=== PATIENT | male | born 1955 | race Caucasian/White ===

== ENCOUNTER 2016-05-13 09:44 | Outpatient (RCR) | payer BC ==
[~2016-05-13 09:44] MED LIST: FAMO-119 PO; PRD20T PO
--- OUTSIDE RECORDS SUMMARY | 2016-05-13 09:47 | XMS REPORT | Continuity of Care Document ---
Author Author [facility] Organization [facility] Address Unknown Phone Unavailable Care Team Providers Care Noc Analyst Name Role Phone PCP Unavailable Source Comments Some departments are not documenting in the electronic medical record. If you do not see the information that you expected, contact Release of Information in the Health Information Management department at [phone] for further assistance in locating additional records.[facility] Active Allergies and Adverse Reactions Not on File Current Medications Not on file Active Problems Not on file Social History Tobacco Use Types Packs/Day Years Used Date Never Assessed Plan of Care Health Maintenance Due Date Last Done Comments Physical (Comprehensive) 02/27/1960 Exam Pertussis Vaccine 02/27/1964 Tetanus Vaccine 1970 Colorectal Cancer 2003 Screening Shingles Vaccine 2013 Influenza Vaccine 01/08/2016 Results from Last 3 Months Not on file
[2016-05-13 10:07] LABS: BASOPHILS % (AUTO) 1 % (0-10); EOSINOPHILS # (AUTO) 0.1 10^3/uL (0.0-0.3); EOSINOPHILS % (AUTO) 1 % (0-10); LYMPHOCYTES # (AUTO) 1.7 X 10^3 (1.0-4.0); LYMPHOCYTES % (AUTO) 28 % (12-44); MEAN CORPUSCULAR HEMOGLOBIN 31 PG (25-34); MEAN CORPUSCULAR HGB CONC 34 G/DL (32-36); MEAN CORPUSCULAR VOLUME 93 FL (80-99); MEAN PLATELET VOLUME 10.1 FL (7.4-10.4); MONOCYTES # (AUTO) 0.6 X 10^3 (0.0-1.0); MONOCYTES % (AUTO) 10 % (0-12); NEUTROPHILS # (AUTO) 3.7 X 10^3 (1.8-7.8); NEUTROPHILS % (AUTO) 61 % (42-75); PLATELET COUNT 197 10^3/uL (130-400); RED BLOOD COUNT 4.41 10^6/uL (4.35-5.85); RED CELL DISTRIBUTION WIDTH 12.7 % (10.0-14.5); WHITE BLOOD COUNT 6.1 10^3/uL (4.3-11.0)
[2016-05-13 10:37] LABS: ALANINE AMINOTRANSFERASE 65 U/L (0-55); ALBUMIN 4.4 G/DL (3.2-4.5); ANION GAP 9 MMOL/L (5-14); ASPARTATE AMINO TRANSFERASE 65 U/L (5-34); BILIRUBIN,TOTAL 0.7 MG/DL (0.1-1.0); BLOOD UREA NITROGEN 8 MG/DL (7-18); BUN/CREATININE RATIO 9; CALCIUM 9.1 MG/DL (8.5-10.1); CARBON DIOXIDE 26 MMOL/L (21-32); CHLORIDE 104 MMOL/L (98-107); CREATININE SERUM 0.88 MG/DL (0.60-1.30); GFR ESTIMATED > 60; GLUCOSE 107 MG/DL (70-105); SODIUM 139 MMOL/L (135-145); TOTAL PROTEIN 6.7 G/DL (6.4-8.2)
== END 2016-08-11 | disposition home or self-care (01) ==
LOC: ONC 09:44
PROVIDERS: ATTEND Internal Medicine Hematology & Oncology
DX: C50.222 Malignant neoplasm of upper-inner quadrant of left male breast (principal); Z17.0 Estrogen receptor positive status [ER+]; Z90.13 Acquired absence of bilateral breasts and nipples; Z79.810 Long term (current) use of selective estrogen receptor modulators (SERMs)
CPT/HCPCS: 36415; 80053; 85025; 99213

== ENCOUNTER 2016-08-12 10:41 | Outpatient (RCR) | payer BC ==
[2016-08-12 11:28] LABS: BASOPHILS # (AUTO) 0.1 10^3/uL (0.0-0.1); BASOPHILS % (AUTO) 1 % (0-10); EOSINOPHILS # (AUTO) 0.1 10^3/uL (0.0-0.3); EOSINOPHILS % (AUTO) 1 % (0-10); LYMPHOCYTES # (AUTO) 1.7 X 10^3 (1.0-4.0); LYMPHOCYTES % (AUTO) 30 % (12-44); MEAN CORPUSCULAR HEMOGLOBIN 32 PG (25-34); MEAN CORPUSCULAR HGB CONC 33 G/DL (32-36); MEAN CORPUSCULAR VOLUME 96 FL (80-99); MEAN PLATELET VOLUME 10.9 FL (7.4-10.4); MONOCYTES # (AUTO) 0.5 X 10^3 (0.0-1.0); MONOCYTES % (AUTO) 9 % (0-12); NEUTROPHILS # (AUTO) 3.3 X 10^3 (1.8-7.8); NEUTROPHILS % (AUTO) 59 % (42-75); PLATELET COUNT 219 10^3/uL (130-400); RED BLOOD COUNT 4.37 10^6/uL (4.35-5.85); RED CELL DISTRIBUTION WIDTH 12.8 % (10.0-14.5); WHITE BLOOD COUNT 5.5 10^3/uL (4.3-11.0)
[2016-08-12 11:59] LABS: ALANINE AMINOTRANSFERASE 80 U/L (0-55); ALBUMIN 4.3 G/DL (3.2-4.5); ANION GAP 6 MMOL/L (5-14); ASPARTATE AMINO TRANSFERASE 81 U/L (5-34); BILIRUBIN,TOTAL 0.6 MG/DL (0.1-1.0); BLOOD UREA NITROGEN 8 MG/DL (7-18); BUN/CREATININE RATIO 8; CARBON DIOXIDE 28 MMOL/L (21-32); CHLORIDE 104 MMOL/L (98-107); CREATININE SERUM 1.01 MG/DL (0.60-1.30); GFR ESTIMATED > 60; GLUCOSE 121 MG/DL (70-105); POTASSIUM 4.3 MMOL/L (3.6-5.0); SODIUM 138 MMOL/L (135-145); TOTAL PROTEIN 6.8 G/DL (6.4-8.2)
== END 2016-11-10 | disposition home or self-care (01) ==
LOC: ONC 10:41
PROVIDERS: ATTEND Internal Medicine Hematology & Oncology
DX: C50.222 Malignant neoplasm of upper-inner quadrant of left male breast (principal); Z17.0 Estrogen receptor positive status [ER+]; Z90.13 Acquired absence of bilateral breasts and nipples; Z79.810 Long term (current) use of selective estrogen receptor modulators (SERMs)
CPT/HCPCS: 36415; 80053; 85025; 99213

== ENCOUNTER 2016-11-11 09:36 | Outpatient (RCR) | payer BC ==
[2016-11-11 09:40] LABS: BASOPHILS # (AUTO) 0.1 10^3/uL (0.0-0.1); BASOPHILS % (AUTO) 1 % (0-10); EOSINOPHILS # (AUTO) 0.1 10^3/uL (0.0-0.3); EOSINOPHILS % (AUTO) 2 % (0-10); LYMPHOCYTES # (AUTO) 2.3 X 10^3 (1.0-4.0); LYMPHOCYTES % (AUTO) 28 % (12-44); MEAN CORPUSCULAR HEMOGLOBIN 32 PG (25-34); MEAN CORPUSCULAR HGB CONC 34 G/DL (32-36); MEAN CORPUSCULAR VOLUME 94 FL (80-99); MEAN PLATELET VOLUME 10.4 FL (7.4-10.4); MONOCYTES # (AUTO) 0.7 X 10^3 (0.0-1.0); MONOCYTES % (AUTO) 9 % (0-12); NEUTROPHILS # (AUTO) 4.8 X 10^3 (1.8-7.8); NEUTROPHILS % (AUTO) 60 % (42-75); PLATELET COUNT 213 10^3/uL (130-400); RED BLOOD COUNT 4.44 10^6/uL (4.35-5.85); RED CELL DISTRIBUTION WIDTH 12.7 % (10.0-14.5)
[2016-11-11 10:17] LABS: ALANINE AMINOTRANSFERASE 68 U/L (0-55); ALBUMIN 4.3 GM/DL (3.2-4.5); ANION GAP 9 MMOL/L (5-14); ASPARTATE AMINO TRANSFERASE 81 U/L (5-34); BLOOD UREA NITROGEN 10 MG/DL (7-18); BUN/CREATININE RATIO 10; CALCIUM 9.6 MG/DL (8.5-10.1); CARBON DIOXIDE 27 MMOL/L (21-32); CHLORIDE 102 MMOL/L (98-107); CREATININE SERUM 1.05 MG/DL (0.60-1.30); GFR ESTIMATED > 60; GLUCOSE 119 MG/DL (70-105); POTASSIUM 4.4 MMOL/L (3.6-5.0); SODIUM 138 MMOL/L (135-145); TOTAL PROTEIN 7.3 GM/DL (6.4-8.2)
== END 2017-02-05 | disposition home or self-care (01) ==
LOC: ONC 09:36
PROVIDERS: ATTEND Internal Medicine Hematology & Oncology
DX: C50.222 Malignant neoplasm of upper-inner quadrant of left male breast (principal); Z17.0 Estrogen receptor positive status [ER+]; Z90.13 Acquired absence of bilateral breasts and nipples; Z79.810 Long term (current) use of selective estrogen receptor modulators (SERMs); I89.0 Lymphedema, not elsewhere classified; R22.2 Localized swelling, mass and lump, trunk; Z12.5 Encounter for screening for malignant neoplasm of prostate
CPT/HCPCS: 36415; 80053; 84153; 85025; 99213

== ENCOUNTER 2017-02-21 08:40 | Outpatient (RCR) | payer BC ==
[2017-02-21 08:56] LABS: BASOPHILS % (AUTO) 1 % (0-10); EOSINOPHILS # (AUTO) 0.1 10^3/uL (0.0-0.3); EOSINOPHILS % (AUTO) 2 % (0-10); HEMATOCRIT 41 % (40-54); HEMOGLOBIN 13.6 G/DL (13.3-17.7); LYMPHOCYTES # (AUTO) 2.4 X 10^3 (1.0-4.0); LYMPHOCYTES % (AUTO) 41 % (12-44); MEAN CORPUSCULAR HEMOGLOBIN 32 PG (25-34); MEAN CORPUSCULAR HGB CONC 33 G/DL (32-36); MEAN CORPUSCULAR VOLUME 96 FL (80-99); MEAN PLATELET VOLUME 10.6 FL (7.4-10.4); MONOCYTES # (AUTO) 0.5 X 10^3 (0.0-1.0); MONOCYTES % (AUTO) 9 % (0-12); NEUTROPHILS # (AUTO) 2.7 X 10^3 (1.8-7.8); NEUTROPHILS % (AUTO) 47 % (42-75); PLATELET COUNT 204 10^3/uL (130-400); RED BLOOD COUNT 4.29 10^6/uL (4.35-5.85); RED CELL DISTRIBUTION WIDTH 12.7 % (10.0-14.5); WHITE BLOOD COUNT 5.7 10^3/uL (4.3-11.0)
[2017-02-21 09:15] LABS: ALANINE AMINOTRANSFERASE 57 U/L (0-55); ALBUMIN 4.3 GM/DL (3.2-4.5); ALKALINE PHOSPHATASE 105 U/L (40-136); BILIRUBIN,TOTAL 0.4 MG/DL (0.1-1.0); BUN/CREATININE RATIO 16; CALCIUM 8.9 MG/DL (8.5-10.1); CARBON DIOXIDE 23 MMOL/L (21-32); CHLORIDE 106 MMOL/L (98-107); CREATININE SERUM 0.85 MG/DL (0.60-1.30); GFR ESTIMATED > 60; GLUCOSE 97 MG/DL (70-105); POTASSIUM 4.3 MMOL/L (3.6-5.0); SODIUM 140 MMOL/L (135-145)
== END 2017-05-22 | disposition home or self-care (01) ==
LOC: ONC 08:40
PROVIDERS: ATTEND Internal Medicine Hematology & Oncology
DX: C50.222 Malignant neoplasm of upper-inner quadrant of left male breast (principal); Z17.0 Estrogen receptor positive status [ER+]; Z90.13 Acquired absence of bilateral breasts and nipples; Z79.810 Long term (current) use of selective estrogen receptor modulators (SERMs); I89.0 Lymphedema, not elsewhere classified; R22.2 Localized swelling, mass and lump, trunk; Z12.5 Encounter for screening for malignant neoplasm of prostate
CPT/HCPCS: 36415; 80053; 85025; 99213

== ENCOUNTER 2017-06-22 09:25 | Outpatient (RCR) | payer BC ==
[2017-06-22 09:45] LABS: BASOPHILS % (AUTO) 1 % (0-10); EOSINOPHILS # (AUTO) 0.1 10^3/uL (0.0-0.3); EOSINOPHILS % (AUTO) 2 % (0-10); HEMATOCRIT 41 % (40-54); HEMOGLOBIN 13.9 G/DL (13.3-17.7); LYMPHOCYTES # (AUTO) 2.2 X 10^3 (1.0-4.0); LYMPHOCYTES % (AUTO) 47 % (12-44); MEAN CORPUSCULAR HEMOGLOBIN 33 PG (25-34); MEAN CORPUSCULAR HGB CONC 34 G/DL (32-36); MEAN CORPUSCULAR VOLUME 95 FL (80-99); MEAN PLATELET VOLUME 10.5 FL (7.4-10.4); MONOCYTES # (AUTO) 0.4 X 10^3 (0.0-1.0); MONOCYTES % (AUTO) 8 % (0-12); NEUTROPHILS % (AUTO) 42 % (42-75); PLATELET COUNT 200 10^3/uL (130-400); RED BLOOD COUNT 4.26 10^6/uL (4.35-5.85); RED CELL DISTRIBUTION WIDTH 12.2 % (10.0-14.5); WHITE BLOOD COUNT 4.6 10^3/uL (4.3-11.0)
[2017-06-22 10:07] LABS: ALANINE AMINOTRANSFERASE 81 U/L (0-55); ALBUMIN 4.3 GM/DL (3.2-4.5); ALKALINE PHOSPHATASE 73 U/L (40-136); BILIRUBIN,TOTAL 0.5 MG/DL (0.1-1.0); BUN/CREATININE RATIO 8; CALCIUM 9.3 MG/DL (8.5-10.1); CARBON DIOXIDE 25 MMOL/L (21-32); CHLORIDE 104 MMOL/L (98-107); CREATININE SERUM 1.02 MG/DL (0.60-1.30); GFR ESTIMATED > 60; GLUCOSE 156 MG/DL (70-105); POTASSIUM 4.9 MMOL/L (3.6-5.0); SODIUM 138 MMOL/L (135-145); TOTAL PROTEIN 6.9 GM/DL (6.4-8.2)
== END 2017-09-20 | disposition home or self-care (01) ==
LOC: ONC 09:25
PROVIDERS: ATTEND Internal Medicine Hematology & Oncology
DX: C50.222 Malignant neoplasm of upper-inner quadrant of left male breast (principal); I89.0 Lymphedema, not elsewhere classified; Z17.0 Estrogen receptor positive status [ER+]; Z90.13 Acquired absence of bilateral breasts and nipples; Z79.810 Long term (current) use of selective estrogen receptor modulators (SERMs)
CPT/HCPCS: 36415; 80053; 85025; 99213

== ENCOUNTER → 2017-07-01 | Outpatient (CLI) | payer BC ==
--- NOTE | 2017-07-01 17:42 | Diagnostic Imaging Report ---
INDICATION: Breast carcinoma with left mastectomy three years ago. Patient has a lump in the chest wall. Study was performed for followup. COMPARISON: Correlation is made with prior study from 02/11/2016. EXAMINATION: Chest ultrasound. FINDINGS: There is a hypoechoic fairly circumscribed mass along the lateral portion of the patient's scar in the left chest, measuring 3.6 x 1.4 x 2.5 cm. This compares with 3.3 x 1.6 x 2.4 cm on prior. No internal vascularity is seen. IMPRESSION: Stable left chest wall mass when compared with examination dating back to 02/11/2016. Dictated by: Dictated on workstation # [id number]
== END ==
LOC: RAD 14:00
PROVIDERS: ATTEND Nurse Practitioner Adult Health
DX: R22.2 Localized swelling, mass and lump, trunk (principal); Z85.3 Personal history of malignant neoplasm of breast; Z90.12 Acquired absence of left breast and nipple
CPT/HCPCS: 76604

== ENCOUNTER 2017-10-26 08:52 | Outpatient (RCR) | payer BC ==
[2017-10-26 09:07] LABS: BASOPHILS % (AUTO) 0 % (0-10); EOSINOPHILS # (AUTO) 0.1 10^3/uL (0.0-0.3); EOSINOPHILS % (AUTO) 1 % (0-10); HEMATOCRIT 40 % (40-54); LYMPHOCYTES # (AUTO) 2.6 X 10^3 (1.0-4.0); LYMPHOCYTES % (AUTO) 46 % (12-44); MEAN CORPUSCULAR HEMOGLOBIN 33 PG (25-34); MEAN CORPUSCULAR HGB CONC 35 G/DL (32-36); MEAN CORPUSCULAR VOLUME 94 FL (80-99); MEAN PLATELET VOLUME 10.7 FL (7.4-10.4); MONOCYTES # (AUTO) 0.6 X 10^3 (0.0-1.0); MONOCYTES % (AUTO) 11 % (0-12); NEUTROPHILS # (AUTO) 2.4 X 10^3 (1.8-7.8); NEUTROPHILS % (AUTO) 42 % (42-75); PLATELET COUNT 227 10^3/uL (130-400); RED BLOOD COUNT 4.25 10^6/uL (4.35-5.85); RED CELL DISTRIBUTION WIDTH 12.3 % (10.0-14.5); WHITE BLOOD COUNT 5.6 10^3/uL (4.3-11.0)
[2017-10-26 09:53] LABS: ALANINE AMINOTRANSFERASE 66 U/L (0-55); ALBUMIN 4.2 GM/DL (3.2-4.5); ALKALINE PHOSPHATASE 88 U/L (40-136); BILIRUBIN,TOTAL 0.5 MG/DL (0.1-1.0); BUN/CREATININE RATIO 6; CARBON DIOXIDE 23 MMOL/L (21-32); CHLORIDE 105 MMOL/L (98-107); CREATININE SERUM 1.01 MG/DL (0.60-1.30); GFR ESTIMATED > 60; GLUCOSE 105 MG/DL (70-105); POTASSIUM 4.9 MMOL/L (3.6-5.0); SODIUM 139 MMOL/L (135-145); TOTAL PROTEIN 6.8 GM/DL (6.4-8.2)
== END 2018-01-24 | disposition home or self-care (01) ==
LOC: ONC 08:52
PROVIDERS: ATTEND Internal Medicine Hematology & Oncology
DX: C50.222 Malignant neoplasm of upper-inner quadrant of left male breast (principal); I89.0 Lymphedema, not elsewhere classified; R74.0 Nonspecific elevation of levels of transaminase and lactic acid dehydrogenase [LDH]; Z17.0 Estrogen receptor positive status [ER+]; Z90.13 Acquired absence of bilateral breasts and nipples; Z79.810 Long term (current) use of selective estrogen receptor modulators (SERMs); Z72.89 Other problems related to lifestyle
CPT/HCPCS: 36415; 80053; 85025; 99213

== ENCOUNTER 2018-02-04 09:14 | Emergency (ER) | payer BC, OTHER ==
[~2018-02-04] VITALS: Ht 177.8 cm; Wt 86.2 kg
--- OUTSIDE RECORDS SUMMARY | 2018-02-04 09:18 | XMS REPORT | Clinical Summary ---
Author Author [facility] Organization [facility] Address Unknown Phone Unavailable Care Team Providers Care Tufting Machine Fixer Name Role Phone PCP Unavailable Source Comments Some departments are not documenting in the electronic medical record. If you do not see the information that you expected, contact Release of Information in the Health Information Management department at [phone] for further assistance in locating additional records.[facility] Allergies Not on File Current Medications Not on file Active Problems Not on file Social History Tobacco Use Types Packs/Day Years Used Date Never Assessed Sex Assigned at Date Recorded Not on file Last Filed Vital Signs Not on file Plan of Treatment Health Maintenance Due Date Last Done Comments HEPATITIS C SCREENING 1955 PHYSICAL (COMPREHENSIVE) 02/27/1960 EXAM PERTUSSIS VACCINE 02/27/1964 HIV SCREENING 02/27/1968 TETANUS VACCINE 1970 COLORECTAL CANCER 2003 SCREENING SHINGLES RECOMBINANT 2003 VACCINE (1 of 2) INFLUENZA VACCINE 12/07/2017 Results Not on filefrom Last 3 Months
--- OUTSIDE RECORDS SUMMARY | 2018-02-04 09:20 | XMS REPORT | Continuity of Care Document ---
Author Author [facility] Organization [facility] Address Unknown Phone Unavailable Allergies Active Description Code Type Severity Reaction Onset Reported/Identified Relationship to Patient Clinical Status Yes No Known Drug Allergies [id number] Drug Allergy Unknown N/A 05/10/2008 Medications There is no data. Problems Date Dx Coded Attending Type Code Diagnosis Diagnosed By 09/03/2013 GISSELL GARZA MD Ot 708.9 09/03/2013 GISSELL GARZA MD Ot 787.91 11/01/2014 KAYLEN GALVAN, KORI Tellez Ot 573.8 11/01/2014 KAYLEN GALVAN, KORI A Ot 790.5 01/09/2015 Ot 708.9 01/09/2015 Ot 787.91 01/09/2015 KAYLEN GALVAN, KORI Tellez Ot 573.8 01/09/2015 KAYLEN GALVAN, KORI A Ot 790.5 01/23/2015 AMADOR HERNANDEZ Ot 611.72 02/24/2015 Ot 708.9 02/24/2015 Ot 787.91 02/24/2015 KAYLEN GALVAN, KORI Tellez Ot 573.8 02/24/2015 KAYLEN GALVAN, KORI Tellez Ot 790.5 02/24/2015 AMADOR HERNANDEZ Ot 611.72 02/27/2015 DARREN MATT MD Ot C50.422 03/05/2015 Ot 708.9 03/05/2015 Ot 787.91 03/05/2015 KAYLEN GALVAN, KORI Tellez Ot 573.8 03/05/2015 KAYLEN GALVAN, KORI Tellez Ot 790.5 03/05/2015 AMADOR HERNANDEZ Ot 611.72 03/05/2015 SHAKA GALVAN, DARREN Hernandez Ot C50.422 03/05/2015 SHAKA GALVAN, DARREN Hernandez Ot C50.912 03/05/2015 DARREN MATT MD Ot Z01.818 03/05/2015 SHAKA GALVAN, DARREN M Ot Z11.2 03/05/2015 SHAKA GALVAN, DARREN M Ot Z80.3 03/06/2015 SHAKA GALVAN, DARREN M Ot C50.922 03/06/2015 SHAKA GALVAN, DARREN M Ot N62 03/06/2015 SHAKA GALVAN, DARREN M Ot C50.912 03/06/2015 SHAKA GALVAN, DARREN M Ot Z01.818 03/06/2015 SHAKA GALVAN, DARREN M Ot Z11.2 03/06/2015 SHAKA GALVAN, DARREN M Ot Z80.3 03/11/2015 SHAKA GALVAN, DARREN M Ot C50.422 03/20/2015 SHAKA GALVAN, DARREN M Ot C50.922 03/20/2015 SHAKA GALVAN, DARREN M Ot Z01.818 03/20/2015 SHAKA GALVAN, DARREN M Ot Z11.2 03/20/2015 SHAKA GALVAN, DARREN M Ot Z80.3 03/20/2015 SHAKA GALVAN, DARREN M Ot C50.922 03/24/2015 Ot 708.9 03/24/2015 Ot 787.91 03/24/2015 KAYLEN GALVAN, KORI A Ot 573.8 03/24/2015 KAYLEN GALVAN, KORI A Ot 790.5 03/24/2015 AMADOR HERNANDEZ CAR COUPLER Ot 611.72 03/24/2015 SHAKA GALVAN, DARREN M Ot C50.422 03/24/2015 SHAKA GALVAN, DARREN M Ot C50.922 03/24/2015 SHAKA GALVAN, DARREN M Ot Z01.818 03/24/2015 SHAKA GALVAN, DARREN M Ot Z11.2 03/24/2015 SHAKA GALVAN, DARREN M Ot Z80.3 03/24/2015 SHAKA GALVAN, DARREN M Ot C50.922 04/24/2015 BILLY FALK Ot C50.922 05/28/2015 CAROL ROACH CAR COUPLER Ot C50.222 05/28/2015 CAROL ROACH CAR COUPLER Ot Z17.0 05/28/2015 CAROL ROACH CAR COUPLER Ot Z79.810 05/28/2015 CAROL ROACH CAR COUPLER Ot Z90.13 06/22/2015 BILLY FALK Ot C50.922 07/31/2015 BILLY FALK Ot C50.922 08/20/2015 BILLY FALK Ot C50.222 08/20/2015 BILLY FALK Ot Z17.0 08/20/2015 BILLY FALK N Ot Z79.810 08/20/2015 BILLY FALK N Ot Z90.13 09/07/2015 JOSE LUIS PEREZ, SHAMIKA K Ot L50.0 ALLERGIC URTICARIA 09/07/2015 JOSE LUIS , SHAMIKA K Ot Z87.891 PERSONAL HISTORY OF NICOTINE DEPENDENCE 09/09/2015 JOSE LUIS , SHAMIKA K Ot L50.0 ALLERGIC URTICARIA 09/09/2015 JOSE LUIS , SHAMIKA K Ot Z87.891 PERSONAL HISTORY OF NICOTINE DEPENDENCE 11/05/2015 BILLY FALK Ot C50.222 MALIG NEOPLASM OF UPPER-INNER QUADRANT O 11/05/2015 BILLY FALK Ot Z17.0 ESTROGEN RECEPTOR POSITIVE STATUS [ER+] 11/05/2015 BILLY FALK Ot Z79.810 LNG TRM (CRNT) USE OF SLCTV ESTROG EVENT ORGANIZER 11/05/2015 BILLY FALK N Ot Z90.13 ACQUIRED ABSENCE OF BILATERAL BREASTS AN 11/07/2015 CAROL ROACH CAR COUPLER Ot C50.222 MALIG NEOPLASM OF UPPER-INNER QUADRANT O 11/07/2015 CAROL ROACH CAR COUPLER Ot Z17.0 ESTROGEN RECEPTOR POSITIVE STATUS [ER+] 11/07/2015 CAROL ROACH CAR COUPLER Ot Z79.810 LNG TRM (CRNT) USE OF SLCTV ESTROG EVENT ORGANIZER 11/07/2015 CAROL ROACH CAR COUPLER Ot Z90.13 ACQUIRED ABSENCE OF BILATERAL BREASTS AN 11/11/2015 BILLY FALK N Ot C50.222 MALIG NEOPLASM OF UPPER-INNER QUADRANT O 11/11/2015 BILLY FALK N Ot Z17.0 ESTROGEN RECEPTOR POSITIVE STATUS [ER+] 11/11/2015 BILLY FALK Ot Z79.810 LNG TRM (CRNT) USE OF SLCTV ESTROG EVENT ORGANIZER 11/11/2015 DILEEP, BOBAN N Ot Z90.13 ACQUIRED ABSENCE OF BILATERAL BREASTS AN 12/04/2015 CAROL ROACH CAR COUPLER Ot C50.222 MALIG NEOPLASM OF UPPER-INNER QUADRANT O 12/04/2015 CAROL ROACH CAR COUPLER Ot Z17.0 ESTROGEN RECEPTOR POSITIVE STATUS [ER+] 12/04/2015 CAROL ROACH CAR COUPLER Ot Z79.810 LNG TRM (CRNT) USE OF SLCTV ESTROG EVENT ORGANIZER 12/04/2015 CAROL ROACH CAR COUPLER Ot Z90.13 ACQUIRED ABSENCE OF BILATERAL BREASTS AN 12/18/2015 BILLY FALK N Ot C50.222 MALIG NEOPLASM OF UPPER-INNER QUADRANT O 12/18/2015 BILLY FALK Viviane Ot Z17.0 ESTROGEN RECEPTOR POSITIVE STATUS [ER+] 12/18/2015 BILLY FALK Viviane Ot Z79.810 LNG TRM (CRNT) USE OF SLCTV ESTROG EVENT ORGANIZER 12/18/2015 BILLY FALK Viviane Ot Z90.13 ACQUIRED ABSENCE OF BILATERAL BREASTS AN 01/23/2016 BILLY FALK N Ot C50.222 MALIG NEOPLASM OF UPPER-INNER QUADRANT O 01/23/2016 BILLY FALK N Ot Z17.0 ESTROGEN RECEPTOR POSITIVE STATUS [ER+] 01/23/2016 BILLY FALK Viviane Ot Z79.810 LNG TRM (CRNT) USE OF SLCTV ESTROG EVENT ORGANIZER 01/23/2016 BILLY FALK Viviane Ot Z90.13 ACQUIRED ABSENCE OF BILATERAL BREASTS AN 02/12/2016 CAROL ROACH CAR COUPLER Ot C50.222 MALIG NEOPLASM OF UPPER-INNER QUADRANT O 02/12/2016 CAROL ROACH CAR COUPLER Ot R22.2 LOCALIZED SWELLING, MASS AND LUMP, TRUNK 02/23/2016 BILLY FALK N Ot C50.222 MALIG NEOPLASM OF UPPER-INNER QUADRANT O 02/23/2016 BILLY FALK Viviane Ot Z17.0 ESTROGEN RECEPTOR POSITIVE STATUS [ER+] 02/23/2016 BILLY FALK Viviane Ot Z79.810 LNG TRM (CRNT) USE OF SLCTV ESTROG EVENT ORGANIZER 02/23/2016 BILLY FALK Viviane Ot Z90.13 ACQUIRED ABSENCE OF BILATERAL BREASTS AN 02/25/2016 CAROL ROACH CAR COUPLER Ot C50.222 MALIG NEOPLASM OF UPPER-INNER QUADRANT O 02/25/2016 CAROL ROACH CAR COUPLER Ot R22.2 LOCALIZED SWELLING, MASS AND LUMP, TRUNK 02/25/2016 CAROL ROACH CAR COUPLER Ot C50.222 MALIG NEOPLASM OF UPPER-INNER QUADRANT O 02/25/2016 CAROL ROACH CAR COUPLER Ot R22.2 LOCALIZED SWELLING, MASS AND LUMP, TRUNK 2016 CAROL ROACH CAR COUPLER Ot C50.222 MALIG NEOPLASM OF UPPER-INNER QUADRANT O 2016 CAROL ROACH CAR COUPLER Ot R22.2 LOCALIZED SWELLING, MASS AND LUMP, TRUNK 03/02/2016 CAROL ROACH CAR COUPLER Ot C50.222 MALIG NEOPLASM OF UPPER-INNER QUADRANT O 03/02/2016 CAROL ROACH CAR COUPLER Ot R59.0 LOCALIZED ENLARGED LYMPH NODES 03/09/2016 Ot 787.91 03/10/2016 CAROL ROACH CAR COUPLER Ot C50.222 MALIG NEOPLASM OF UPPER-INNER QUADRANT O 03/10/2016 CAROL ROACH CAR COUPLER Ot R22.2 LOCALIZED SWELLING, MASS AND LUMP, TRUNK 03/16/2016 BILLY FALK Ot C50.222 MALIG NEOPLASM OF UPPER-INNER QUADRANT O 03/16/2016 BILLY FALK Ot Z17.0 ESTROGEN RECEPTOR POSITIVE STATUS [ER+] 03/16/2016 BILLY FALK Ot Z79.810 LNG TRM (CRNT) USE OF SLCTV ESTROG EVENT ORGANIZER 03/16/2016 BILLY FALK Viviane Ot Z90.13 ACQUIRED ABSENCE OF BILATERAL BREASTS AN 03/17/2016 BILLY FALK Ot C50.222 MALIG NEOPLASM OF UPPER-INNER QUADRANT O 03/17/2016 BILLY FALK Ot Z17.0 ESTROGEN RECEPTOR POSITIVE STATUS [ER+] 03/17/2016 BILLY FALK Ot Z79.810 LNG TRM (CRNT) USE OF SLCTV ESTROG EVENT ORGANIZER 03/17/2016 BILLY FALK Viviane Ot Z90.13 ACQUIRED ABSENCE OF BILATERAL BREASTS AN 04/08/2016 Ot 787.91 05/14/2016 BILLY FALK Ot C50.222 MALIG NEOPLASM OF UPPER-INNER QUADRANT O 05/14/2016 BILLY FALK Ot Z17.0 ESTROGEN RECEPTOR POSITIVE STATUS [ER+] 05/14/2016 BILLY FALK Ot Z79.810 LNG TRM (CRNT) USE OF SLCTV ESTROG EVENT ORGANIZER 05/14/2016 BILLY FALK Ot Z90.13 ACQUIRED ABSENCE OF BILATERAL BREASTS AN 06/23/2016 BILLY FALK Ot C50.222 MALIG NEOPLASM OF UPPER-INNER QUADRANT O 06/23/2016 BILLY FALK N Ot Z17.0 ESTROGEN RECEPTOR POSITIVE STATUS [ER+] 06/23/2016 BILLY FALK N Ot Z79.810 LNG TRM (CRNT) USE OF SLCTV ESTROG EVENT ORGANIZER 06/23/2016 BILLY FALK N Ot Z90.13 ACQUIRED ABSENCE OF BILATERAL BREASTS AN 08/11/2016 BILLY FALK Ot C50.222 MALIG NEOPLASM OF UPPER-INNER QUADRANT O 08/11/2016 BILLY FALK Ot Z17.0 ESTROGEN RECEPTOR POSITIVE STATUS [ER+] 08/11/2016 BILLY FALK Ot Z79.810 LNG TRM (CRNT) USE OF SLCTV ESTROG EVENT ORGANIZER 08/11/2016 BILLY FALK N Ot Z90.13 ACQUIRED ABSENCE OF BILATERAL BREASTS AN 08/13/2016 BILLY FALK Ot C50.222 MALIG NEOPLASM OF UPPER-INNER QUADRANT O 08/13/2016 BILLY FALK Ot Z17.0 ESTROGEN RECEPTOR POSITIVE STATUS [ER+] 08/13/2016 BILLY FALK Ot Z79.810 LNG TRM (CRNT) USE OF SLCTV ESTROG EVENT ORGANIZER 08/13/2016 BILLY FALK N Ot Z90.13 ACQUIRED ABSENCE OF BILATERAL BREASTS AN 08/17/2016 BILLY FALK Ot C50.222 MALIG NEOPLASM OF UPPER-INNER QUADRANT O 08/17/2016 BILLY FALK N Ot Z17.0 ESTROGEN RECEPTOR POSITIVE STATUS [ER+] 08/17/2016 BILLY FALK Ot Z79.810 LNG TRM (CRNT) USE OF SLCTV ESTROG EVENT ORGANIZER 08/17/2016 BILLY FALK N Ot Z90.13 ACQUIRED ABSENCE OF BILATERAL BREASTS AN 09/23/2016 BILLY FALK Ot C50.222 MALIG NEOPLASM OF UPPER-INNER QUADRANT O 09/23/2016 BILLY FALK Ot Z17.0 ESTROGEN RECEPTOR POSITIVE STATUS [ER+] 09/23/2016 BILLY FALK N Ot Z79.810 LNG TRM (CRNT) USE OF SLCTV ESTROG EVENT ORGANIZER 09/23/2016 BILLY FALK Viviane Ot Z90.13 ACQUIRED ABSENCE OF BILATERAL BREASTS AN 11/10/2016 BILLY FALK N Ot C50.222 MALIG NEOPLASM OF UPPER-INNER QUADRANT O 11/10/2016 BILLY FALK N Ot Z17.0 ESTROGEN RECEPTOR POSITIVE STATUS [ER+] 11/10/2016 BILLY FALK N Ot Z79.810 LNG TRM (CRNT) USE OF SLCTV ESTROG EVENT ORGANIZER 11/10/2016 BILLY FALK N Ot Z90.13 ACQUIRED ABSENCE OF BILATERAL BREASTS AN 11/12/2016 BILLY FALK Ot C50.222 MALIG NEOPLASM OF UPPER-INNER QUADRANT O 11/12/2016 BILLY FALK N Ot Z17.0 ESTROGEN RECEPTOR POSITIVE STATUS [ER+] 11/12/2016 BILLY FALK Viviane Ot Z79.810 LNG TRM (CRNT) USE OF SLCTV ESTROG EVENT ORGANIZER 11/12/2016 BILLY FALK N Ot Z90.13 ACQUIRED ABSENCE OF BILATERAL BREASTS AN 12/29/2016 BILLY FALK N Ot C50.222 MALIG NEOPLASM OF UPPER-INNER QUADRANT O 12/29/2016 BILLY FALK Ot I89.0 LYMPHEDEMA, NOT ELSEWHERE CLASSIFIED 12/29/2016 BILLY FALK Viviane Ot R22.2 LOCALIZED SWELLING, MASS AND LUMP, TRUNK 12/29/2016 BILLY FALK Viviane Ot Z12.5 ENCOUNTER FOR SCREENING FOR MALIGNANT NE 12/29/2016 BILLY FALK N Ot Z17.0 ESTROGEN RECEPTOR POSITIVE STATUS [ER+] 12/29/2016 BILLY FALK N Ot Z79.810 LNG TRM (CRNT) USE OF SLCTV ESTROG EVENT ORGANIZER 12/29/2016 BILLY FALK N Ot Z90.13 ACQUIRED ABSENCE OF BILATERAL BREASTS AN 02/05/2017 BILLY FALK Ot C50.222 MALIG NEOPLASM OF UPPER-INNER QUADRANT O 02/05/2017 BILLY FALK N Ot I89.0 LYMPHEDEMA, NOT ELSEWHERE CLASSIFIED 02/05/2017 BILLY FALK N Ot R22.2 LOCALIZED SWELLING, MASS AND LUMP, TRUNK 02/05/2017 BILLY FALK N Ot Z12.5 ENCOUNTER FOR SCREENING FOR MALIGNANT NE 02/05/2017 BILLY FALK Ot Z17.0 ESTROGEN RECEPTOR POSITIVE STATUS [ER+] 02/05/2017 BILLY AFLK N Ot Z79.810 LNG TRM (CRNT) USE OF SLCTV ESTROG EVENT ORGANIZER 02/05/2017 BILLY FALK N Ot Z90.13 ACQUIRED ABSENCE OF BILATERAL BREASTS AN 02/22/2017 BILLY FALK N Ot C50.222 MALIG NEOPLASM OF UPPER-INNER QUADRANT O 02/22/2017 BILLY FALK N Ot I89.0 LYMPHEDEMA, NOT ELSEWHERE CLASSIFIED 02/22/2017 BILLY FALK N Ot R22.2 LOCALIZED SWELLING, MASS AND LUMP, TRUNK 02/22/2017 BILLY FALK N Ot Z12.5 ENCOUNTER FOR SCREENING FOR MALIGNANT NE 02/22/2017 BILLY FALK N Ot Z17.0 ESTROGEN RECEPTOR POSITIVE STATUS [ER+] 02/22/2017 BILLY FALK N Ot Z79.810 LNG TRM (CRNT) USE OF SLCTV ESTROG EVENT ORGANIZER 02/22/2017 BILLY FALK N Ot Z90.13 ACQUIRED ABSENCE OF BILATERAL BREASTS AN 03/28/2017 BILLY FALK Ot C50.222 MALIG NEOPLASM OF UPPER-INNER QUADRANT O 03/28/2017 BILLY FALK N Ot I89.0 LYMPHEDEMA, NOT ELSEWHERE CLASSIFIED 03/28/2017 BILLY FALK N Ot R22.2 LOCALIZED SWELLING, MASS AND LUMP, TRUNK 03/28/2017 BILLY FALK N Ot Z12.5 ENCOUNTER FOR SCREENING FOR MALIGNANT NE 03/28/2017 BILLY FALK N Ot Z17.0 ESTROGEN RECEPTOR POSITIVE STATUS [ER+] 03/28/2017 BILLY FALK N Ot Z79.810 LNG TRM (CRNT) USE OF SLCTV ESTROG EVENT ORGANIZER 03/28/2017 BILLY FALK N Ot Z90.13 ACQUIRED ABSENCE OF BILATERAL BREASTS AN 05/22/2017 BILLY FALK Ot C50.222 MALIG NEOPLASM OF UPPER-INNER QUADRANT O 05/22/2017 BILLY FALK Ot I89.0 LYMPHEDEMA, NOT ELSEWHERE CLASSIFIED 05/22/2017 BILLY FALK Ot R22.2 LOCALIZED SWELLING, MASS AND LUMP, TRUNK 05/22/2017 BILLY FALK Ot Z12.5 ENCOUNTER FOR SCREENING FOR MALIGNANT NE 05/22/2017 BILLY FALK Ot Z17.0 ESTROGEN RECEPTOR POSITIVE STATUS [ER+] 05/22/2017 BILLY FALK Ot Z79.810 LNG TRM (CRNT) USE OF SLCTV ESTROG EVENT ORGANIZER 05/22/2017 BILLY FALK Ot Z90.13 ACQUIRED ABSENCE OF BILATERAL BREASTS AN 06/28/2017 JAE SANCHEZ DO Ot 719.03 JOINT EFFUSION-FOREARM 06/28/2017 CAROL ROACH CAR COUPLER Ot C50.222 MALIG NEOPLASM OF UPPER-INNER QUADRANT O 06/28/2017 CAROL ROACH CAR COUPLER Ot Z17.0 ESTROGEN RECEPTOR POSITIVE STATUS [ER+] 06/28/2017 CAROL ROACHP Ot Z79.810 LNG TRM (CRNT) USE OF SLCTV ESTROG EVENT ORGANIZER 06/28/2017 CAROL ROACH CAR COUPLER Ot Z90.13 ACQUIRED ABSENCE OF BILATERAL BREASTS AN 06/28/2017 CAROL ROACH CAR COUPLER Ot C50.222 MALIG NEOPLASM OF UPPER-INNER QUADRANT O 06/28/2017 CAROL ROACH CAR COUPLER Ot R22.2 LOCALIZED SWELLING, MASS AND LUMP, TRUNK 06/28/2017 CAROL ROACH CAR COUPLER Ot C50.222 MALIG NEOPLASM OF UPPER-INNER QUADRANT O 06/28/2017 CAROL ROACH CAR COUPLER Ot R22.2 LOCALIZED SWELLING, MASS AND LUMP, TRUNK 06/28/2017 BILLY FALK Viviane Ot C50.222 MALIG NEOPLASM OF UPPER-INNER QUADRANT O 06/28/2017 BILLY FALK Ot I89.0 LYMPHEDEMA, NOT ELSEWHERE CLASSIFIED 06/28/2017 BILLY FALK Ot Z17.0 ESTROGEN RECEPTOR POSITIVE STATUS [ER+] 06/28/2017 BILLY FALK Ot Z79.810 LNG TRM (CRNT) USE OF SLCTV ESTROG EVENT ORGANIZER 06/28/2017 BILLY FALK Ot Z90.13 ACQUIRED ABSENCE OF BILATERAL BREASTS AN 07/04/2017 ROACHCAROL Ocampo CAR COUPLER Ot R22.2 LOCALIZED SWELLING, MASS AND LUMP, TRUNK 07/04/2017 ROACHCAROL Ocampo S CAR COUPLER Ot Z85.3 PERSONAL HISTORY OF MALIGNANT NEOPLASM O 07/04/2017 ROACHCAROL Ocampo S CAR COUPLER Ot Z90.12 ACQUIRED ABSENCE OF LEFT BREAST AND NIPP 07/13/2017 ROACHCAROL S CAR COUPLER Ot R22.2 LOCALIZED SWELLING, MASS AND LUMP, TRUNK 07/13/2017 ROACHCAROL Ocampo S CAR COUPLER Ot Z85.3 PERSONAL HISTORY OF MALIGNANT NEOPLASM O 07/13/2017 ROACHCAROL S CAR COUPLER Ot Z90.12 ACQUIRED ABSENCE OF LEFT BREAST AND NIPP 07/14/2017 ROACHCAROL Ocampo S CAR COUPLER Ot R22.2 LOCALIZED SWELLING, MASS AND LUMP, TRUNK 07/14/2017 ROACHCAROL Ocampo S CAR COUPLER Ot Z85.3 PERSONAL HISTORY OF MALIGNANT NEOPLASM O 07/14/2017 ROACHCAROL S CAR COUPLER Ot Z90.12 ACQUIRED ABSENCE OF LEFT BREAST AND NIPP 07/14/2017 ROACHCAROL Ocampo S CAR COUPLER Ot R22.2 LOCALIZED SWELLING, MASS AND LUMP, TRUNK 07/14/2017 ROACHCAROL Ocampo S CAR COUPLER Ot Z85.3 PERSONAL HISTORY OF MALIGNANT NEOPLASM O 07/14/2017 ROACHCAROL Ocampo S CAR COUPLER Ot Z90.12 ACQUIRED ABSENCE OF LEFT BREAST AND NIPP 07/22/2017 BILLY FALK Ot C50.222 MALIG NEOPLASM OF UPPER-INNER QUADRANT O 07/22/2017 BILLY FALK Ot I89.0 LYMPHEDEMA, NOT ELSEWHERE CLASSIFIED 07/22/2017 BILLY FALK Ot Z17.0 ESTROGEN RECEPTOR POSITIVE STATUS [ER+] 07/22/2017 BILLY FALK Ot Z79.810 LNG TRM (CRNT) USE OF SLCTV ESTROG EVENT ORGANIZER 07/22/2017 BILLY FALK Ot Z90.13 ACQUIRED ABSENCE OF BILATERAL BREASTS AN 09/20/2017 DILEEP, BOBAN N Ot C50.222 MALIG NEOPLASM OF UPPER-INNER QUADRANT O 09/20/2017 BILLY FALK Ot I89.0 LYMPHEDEMA, NOT ELSEWHERE CLASSIFIED 09/20/2017 BILLY FALK Ot Z17.0 ESTROGEN RECEPTOR POSITIVE STATUS [ER+] 09/20/2017 BILLY FALK Ot Z79.810 LNG TRM (CRNT) USE OF SLCTV ESTROG EVENT ORGANIZER 09/20/2017 BILLY FALK Ot Z90.13 ACQUIRED ABSENCE OF BILATERAL BREASTS AN 09/21/2017 BILLY FALK Ot C50.222 MALIG NEOPLASM OF UPPER-INNER QUADRANT O 09/21/2017 BILLY FALK Ot I89.0 LYMPHEDEMA, NOT ELSEWHERE CLASSIFIED 09/21/2017 BILLY FALK Ot Z17.0 ESTROGEN RECEPTOR POSITIVE STATUS [ER+] 09/21/2017 BILLY FALK Ot Z79.810 LNG TRM (CRNT) USE OF SLCTV ESTROG EVENT ORGANIZER 09/21/2017 BILLY FALK N Ot Z90.13 ACQUIRED ABSENCE OF BILATERAL BREASTS AN 11/23/2017 BILLY FALK Ot C50.222 MALIG NEOPLASM OF UPPER-INNER QUADRANT O 11/23/2017 BILLY FALK N Ot I89.0 LYMPHEDEMA, NOT ELSEWHERE CLASSIFIED 11/23/2017 BILLY FALK Ot R74.0 NONSPEC ELEV OF LEVELS OF TRANSAMNS LA 11/23/2017 BILLY FALK N Ot Z17.0 ESTROGEN RECEPTOR POSITIVE STATUS [ER+] 11/23/2017 BILLY FALK Ot Z72.89 OTHER PROBLEMS RELATED TO LIFESTYLE 11/23/2017 BILLY FALK Ot Z79.810 LNG TRM (CRNT) USE OF SLCTV ESTROG EVENT ORGANIZER 11/23/2017 BILLY FALK N Ot Z90.13 ACQUIRED ABSENCE OF BILATERAL BREASTS AN 01/24/2018 BILLY FALK Ot C50.222 MALIG NEOPLASM OF UPPER-INNER QUADRANT O 01/24/2018 BILLY FALK N Ot I89.0 LYMPHEDEMA, NOT ELSEWHERE CLASSIFIED 01/24/2018 BILLY FALK N Ot R74.0 NONSPEC ELEV OF LEVELS OF TRANSAMNS LA 01/24/2018 BILLY FALK N Ot Z17.0 ESTROGEN RECEPTOR POSITIVE STATUS [ER+] 01/24/2018 BILLY FALK Ot Z72.89 OTHER PROBLEMS RELATED TO LIFESTYLE 01/24/2018 BILLY FALK Ot Z79.810 LNG TRM (CRNT) USE OF SLCTV ESTROG EVENT ORGANIZER 01/24/2018 BILLY FALK Ot Z90.13 ACQUIRED ABSENCE OF BILATERAL BREASTS AN Procedures There is no data. Results There is no data. Encounters ACCT No. Visit Date/Time Discharge Status Pt. Type Provider Facility Loc./Unit Complaint [id number] 01/25/2018 00:08:00 01/25/2018 23:59:59 CLS Preadmit BILLY FALK Viviane [facility] ONC [id number] 10/26/2017 08:52:00 01/24/2018 00:01:00 DIS Outpatient BILLY FALK Viviane [facility] ONC [id number] 06/22/2017 09:25:00 09/20/2017 00:01:00 DIS Outpatient BILLY FALK Viviane [facility] ONC [id number] 07/01/2017 14:00:00 07/01/2017 23:59:59 CLS Outpatient CAROL ROACH [facility] RAD R22.2 [id number] 02/21/2017 08:40:00 05/22/2017 00:01:00 DIS Outpatient BILLY FALK Viviane [facility] ONC [id number] 11/11/2016 09:36:00 02/05/2017 00:01:00 DIS Outpatient BILLY FALK Viviane [facility] ONC [id number] 08/12/2016 10:41:00 11/10/2016 00:01:00 DIS Outpatient DILEEP, TRISTIANSHAWN Pan [facility] ONC [id number] 05/13/2016 09:44:00 08/11/2016 00:01:00 DIS Outpatient DILEEP, TRISTIANSHAWN Pan [facility] ONC [id number] 02/05/2016 09:38:00 03/16/2016 00:01:00 DIS Outpatient DILEEPBILLY HASKINS [facility] ONC [id number] 02/11/2016 10:08:00 03/02/2016 14:32:00 DIS Outpatient CAROL ROACH CAR COUPLER [facility] REHAB BREAST CANCER, LYMPHEDEMA L TRUNK/AXILLA [id number] 02/24/2016 09:19:00 02/24/2016 23:59:59 CLS Outpatient CAROL ROACH CAR COUPLER [facility] RAD BREAST CA, SUBCUTANEUOS NODULE OF CHEST WALL [id number] 02/11/2016 11:56:00 02/11/2016 23:59:59 CLS Outpatient CAROL ROACH CAR COUPLER [facility] 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 ,CHEST NODULE [id number] 11/06/2015 10:08:00 11/06/2015 23:59:59 CLS Outpatient CAROL ROACH CAR COUPLER [facility] ONC [id number] 08/07/2015 10:28:00 11/05/2015 00:01:00 DIS Outpatient BILLY FALK [facility] ONC [id number] 09/07/2015 09:11:00 09/07/2015 11:20:00 DIS Emergency JOSE LUIS DOSHAMIKA [facility] ER ALLERGIC REACTION [id number] 05/07/2015 13:30:00 06/22/2015 00:01:00 DIS Outpatient BILLY FALK [facility] ONC [id number] 05/07/2015 13:31:00 05/07/2015 23:59:59 CLS Outpatient CAROL ROACH CAR COUPLER [facility] ONC [id number] 03/05/2015 06:57:00 03/06/2015 16:00:00 DIS Outpatient DARREN MATT MD [facility] CARD [id number] 03/04/2015 10:44:00 03/04/2015 23:59:59 CLS Outpatient DARREN MATT MD [facility] RAD [id number] 03/03/2015 12:49:00 03/03/2015 23:59:59 CLS Outpatient DARREN MATT MD [facility] PREOP [id number] 02/24/2015 10:22:00 02/24/2015 23:59:59 CLS Outpatient SHAKA GALVAN, DARREN Hernandez [facility] RAD [id number] 01/09/2015 13:43:00 01/09/2015 23:59:59 CLS Outpatient AMADOR HERNANDEZ [facility] RAD [id number] 10/17/2014 08:38:00 10/17/2014 23:59:59 CLS Outpatient KAYLEN GALVAN, KORI Tellez [facility] RAD [id number] 06/15/2013 12:33:00 09/03/2013 00:01:00 DIS Outpatient GREG GALVAN, GISSELL Hernandez [facility] LAB [id number] 05/22/2013 08:24:00 05/22/2013 23:59:59 CLS Outpatient JAE SANCHEZ DO [facility] RAD SOFT TISSUE EDEMA [id number] 09/04/2013 00:00:00 Document Registration [id number] 05/09/2008 01:55:00 Document Registration [id number] 01/06/2017 13:34:14 01/06/2017 23:59:59 CLS Outpatient
--- NOTE | 2018-02-04 09:42 | Diagnostic Imaging Report ---
EXAMINATION: Left wrist, 3 views. COMPARISON: None. INDICATION: 62-year-old male, fall. Left wrist pain. FINDINGS: There is a mildly dorsally displaced and dorsally angulated fracture of the distal radial metaphysis. There is questionable intra-articular fracture extension in the region of the lunate fossa. IMPRESSION: 1. Mildly dorsally displaced and dorsal angulated fracture of the distal radial metaphysis with questionable intra-articular fracture extension in the region of the lunate fossa. Dictated by: Dictated on workstation # [id number]
[2018-02-04] MEDS ORDERED: HYDR-3812 PO (10:14)
--- NOTE | 2018-02-04 10:14 | ED Upper Extremity ---
General Chief Complaint: Upper Extremity Stated Complaint: L WRIST INJ Nursing Triage Note: pt reports he tripped over some broken concrete and injured his l wrist when he tried to catch himself. l wrist swelling and deformity noted, strong l radial pulse noted. Nursing Sepsis Screen: No Definite Risk Source: patient Exam Limitations: no limitations History of Present Illness Date Seen by Provider: Feb 04, 2018 Time Seen by Provider: 09:22 Initial Comments This 62-year-old Miguel presents to the emergency room with left wrist injury after tripping on some broken concrete and falling. He has disfigurement of the wrist and pain. Incident happened just before arrival and he drove himself to the hospital. He denies any other injuries. Allergies and Home Medications Allergies Coded Allergies: No Known Drug Allergies (Verified , 05/10/08) Home Medications Famotidine 20 Mg Tablet, 20 MG PO BID Prescribed by: SHAMIKA AMAYA on 09/07/15 1113 Hydrocodone/Acetaminophen 1 Each Tablet, 1-2 EACH PO Q6H PRN for PAIN-MODERATE Prescribed by: FRANCESCO WALLACE on 02/04/18 1014 Prednisone 20 Mg Tab, 40 MG PO DAILY Prescribed by: SHAMIKA AMAYA on 09/07/15 1113 Patient Home Medication List Home Medication List Reviewed: Yes Review of Systems Constitutional: no symptoms reported EENTM: no symptoms reported Respiratory: no symptoms reported Cardiovascular: no symptoms reported Gastrointestinal: no symptoms reported Genitourinary: no symptoms reported Musculoskeletal: see HPI Skin: other (minor abrasion/bruising) Psychiatric/Neurological: No Symptoms Reported Past Oubbsvt-Eusrgg-Eiibsd Hx Past Med/Social Hx: Reviewed and Corrections made Patient Social History Alcohol Use: Regular Use Recreational Drug Use: No Smoking Status: Former Smoker Type Used: Cigarettes Former Smoker, Quit: Jan 14, 1987 Recent Foreign Travel: No Contact w/Someone Who Travel: No Recent Infectious Disease Expo: No Recent Hopitalizations: Yes Physical Abuse: No Sexual Abuse: No Mistreated: No Fear: No Immunizations Up To Date Tetanus Booster (TDap): Less than 5yrs PED Vaccines UTD: Yes Past Medical History Surgeries: Yes (RIGHT HAND SX, BREAST LUMPECTOMY, RIGHT AND LEFT MASTECTOMY ) Breast Respiratory: No Cardiac: Yes Hypertension Neurological: No Reproductive Disorders: No Sexually Transmitted Disease: Yes HIV/AIDS: No Gastrointestinal: No Musculoskeletal: No Endocrine: No Cancer: Yes Breast Did You Recieve Any Treatments: Yes What Type of Treatment Did You: Surgical Intervention Psychosocial: No Integumentary: Yes (CHRONIC HIVES) Blood Disorders: No Adverse Reaction/Blood Tranf: No Family Medical History Reviewed Nursing Family Hx Parkinson's disease 19 FATHER Physical Exam Vital Signs Vital Signs - First Documented 02/04/18 09:27 Temp 97.4 Pulse 84 Resp 16 B/P (MAP) 155/100 (118) Pulse Ox 98 Capillary Refill : Less Than 3 Seconds Height, Weight, BMI Height: 5'10.00" Weight: 190lbs. 2.4oz. 86.901549om; BMI Method:Stated General Appearance: WD/WN, mild distress HEENT: PERRL/EOMI, normal ENT inspection Cardiovascular: regular rate, rhythm, no edema, no murmur Respiratory: lungs clear, normal breath sounds, no respiratory distress, no accessory muscle use Shoulder: normal inspection, non-tender, no evidence of injury Elbow/Forearm: normal inspection, non-tender, no evidence of injury, Left Wrist: Yes bone tenderness, Yes deformity, Yes ecchymosis, Yes limited ROM, Yes swelling Hand: normal inspection, non-tender, no evidence of injury, normal ROM, Left Neurologic/Psychiatric: compensation coordinator II-XII nml as tested, no motor/sensory deficits, alert, normal mood/affect, oriented x 3 Skin: normal color, warm/dry, ecchymosis, other (minimal abrasion and bruising of the wrist) Progress/Results/Core Measures Results/Orders My Orders Orders - FRANCESCO BAILEY MD Wrist, Left, 3 Views Or More (02/04/18 09:27) Vital Signs/I&O 02/04/18 09:27 Temp 97.4 Pulse 84 Resp 16 B/P (MAP) 155/100 (118) Pulse Ox 98 Blood Pressure Mean: 118 Progress Progress Note : Progress Note X-rays demonstrated fracture of the distal radius. Images reviewed by Dr. Skinner who advised splinting without reduction. Patient will need surgical intervention. A sugar tong splint was applied. Patient declined pain medication. Splint was placed in a sling. Patient tolerated the procedure well Diagnostic Imaging Diagonstic Imaging: Xray Plain Films/CT/US/NM/MRI: chest Comments Wrist x-ray viewed by me and report reviewed. Discussed with Dr. Skinner. See report below: NAME: HERNESTO ARGUETA [facility] REC#: [id number] PT STATUS: REG ER : 1955 PHYSICIAN: FRANCESCO BAILEY MD ADMIT DATE: 02/04/18/ER Signed Date of Exam: 02/04/18 WRIST, LEFT, 3 VIEWS OR MORE EXAMINATION: Left wrist, 3 views. COMPARISON: None. INDICATION: 62-year-old male, fall. Left wrist pain. FINDINGS: There is a mildly dorsally displaced and dorsally angulated fracture of the distal radial metaphysis. There is questionable intra-articular fracture extension in the region of the lunate fossa. IMPRESSION: 1. Mildly dorsally displaced and dorsal angulated fracture of the distal radial metaphysis with questionable intra-articular fracture extension in the region of the lunate fossa. Dictated by: Dictated on workstation # [id number] Dict: 02/04/18 0937 Trans: 02/04/18 1001 Interpreted by: WILFRIDO BLANC MD Electronically signed by: WILFRIDO BLANC MD 02/04/18 1001 Departure Impression Primary Impression: Fracture of radius, distal, left, closed Qualified Codes: S52.502A - Unspecified fracture of the lower end of left radius, initial encounter for closed fracture Additional Impression: Fall on same level from tripping as cause of accidental injury Disposition: 01 HOME, SELF-CARE Condition: Improved Departure-Patient Inst. Decision time for Depature: 09:45 Referrals: KORI ABDULLAHI MD (PCP/Family) Primary Care Physician VILLA SKINNER DO Patient Instructions: How to Use a Shoulder Sling, SPLINT CARE, Wrist Fracture (DC) Add. Discharge Instructions: Keep the arm in the sling as much as possible. Do not straighten your arm at the elbow. Keep the splint clean and dry. Follow-up with Dr. Skinner. Call his office on Tuesday for an appointment time. Use hydrocodone as prescribed for pain. You may also elevate and ice in 20 minute intervals. It may be advisable to use a stool softener such as Colace while you take narcotic pain medication such as hydrocodone. Do not drive or operate machinery while on the hydrocodone. Return to care if you have any problems or concerns. You should be able to move and feel you're fingers. Return to care if you notice any change in color , sensation, or movement in your fingers. All discharge instructions reviewed with patient and/or family. Voiced understanding. Scripts Hydrocodone/Acetaminophen (Hydrocodone-Acetamin 5-325 mg) 1 Each Tablet 1-2 EACH PO Q6H PRN for PAIN-MODERATE, #30 TAB Prov: FRANCESCO BAILEY MD 02/04/18 Copy Copies To 1: VILLA SKINNER JOSHUA T MD Feb 04, 2018 10:14
[2018-02-04 10:21] VITALS: BP 130/87
== END 2018-02-04 10:21 | disposition home or self-care (01) ==
LOC: EDUNIT# 09:14 → ER 09:15
DX: S59.202A Unspecified physeal fracture of lower end of radius, left arm, initial encounter for closed fracture (principal); I10 Essential (primary) hypertension; Z79.52 Long term (current) use of systemic steroids; Z87.891 Personal history of nicotine dependence; Z90.12 Acquired absence of left breast and nipple; Z85.3 Personal history of malignant neoplasm of breast; W01.0XXA Fall on same level from slipping, tripping and stumbling without subsequent striking against object, initial encounter
CPT/HCPCS: 29105; 73110

== ENCOUNTER 2018-04-19 09:03 | Outpatient (RCR) | payer MEDICARE, OTHER ==
[~2018-04-19 09:03] MED LIST changes: +HYDR-3812 PO
[2018-04-19 09:12] LABS: BASOPHILS % (AUTO) 0 % (0-10); EOSINOPHILS # (AUTO) 0.1 10^3/uL (0.0-0.3); EOSINOPHILS % (AUTO) 2 % (0-10); HEMATOCRIT 41 % (40-54); HEMOGLOBIN 13.5 G/DL (13.3-17.7); LYMPHOCYTES # (AUTO) 2.4 X 10^3 (1.0-4.0); LYMPHOCYTES % (AUTO) 42 % (12-44); MEAN CORPUSCULAR HEMOGLOBIN 32 PG (25-34); MEAN CORPUSCULAR HGB CONC 33 G/DL (32-36); MEAN CORPUSCULAR VOLUME 96 FL (80-99); MEAN PLATELET VOLUME 10.6 FL (7.4-10.4); MONOCYTES # (AUTO) 0.6 X 10^3 (0.0-1.0); MONOCYTES % (AUTO) 11 % (0-12); NEUTROPHILS # (AUTO) 2.5 X 10^3 (1.8-7.8); NEUTROPHILS % (AUTO) 45 % (42-75); PLATELET COUNT 242 10^3/uL (130-400); RED CELL DISTRIBUTION WIDTH 12.4 % (10.0-14.5); WHITE BLOOD COUNT 5.6 10^3/uL (4.3-11.0)
[2018-04-19 09:37] LABS: ALANINE AMINOTRANSFERASE 83 U/L (0-55); ALBUMIN 4.4 GM/DL (3.2-4.5); ALKALINE PHOSPHATASE 78 U/L (40-136); BILIRUBIN,TOTAL 0.4 MG/DL (0.1-1.0); BUN/CREATININE RATIO 10; CALCIUM 9.6 MG/DL (8.5-10.1); CARBON DIOXIDE 23 MMOL/L (21-32); CHLORIDE 106 MMOL/L (98-107); CREATININE SERUM 0.99 MG/DL (0.60-1.30); GFR ESTIMATED > 60; GLUCOSE 107 MG/DL (70-105); POTASSIUM 4.2 MMOL/L (3.6-5.0); SODIUM 139 MMOL/L (135-145)
== END 2018-07-18 | disposition home or self-care (01) ==
LOC: ONC 09:03
PROVIDERS: ATTEND Internal Medicine Hematology & Oncology
DX: C50.222 Malignant neoplasm of upper-inner quadrant of left male breast (principal); I89.0 Lymphedema, not elsewhere classified; R74.0 Nonspecific elevation of levels of transaminase and lactic acid dehydrogenase [LDH]; Z17.0 Estrogen receptor positive status [ER+]; Z90.13 Acquired absence of bilateral breasts and nipples; Z79.810 Long term (current) use of selective estrogen receptor modulators (SERMs); Z72.89 Other problems related to lifestyle; Z90.12 Acquired absence of left breast and nipple; Z12.5 Encounter for screening for malignant neoplasm of prostate
CPT/HCPCS: 36415; 80053; 84153; 85025; 99213

== ENCOUNTER → 2018-10-17 | Outpatient (CLI) | payer MEDICARE, OTHER ==
[2018-10-17 09:08] LABS: BASOPHILS % (AUTO) 0 % (0-10); EOSINOPHILS # (AUTO) 0.1 10^3/uL (0.0-0.3); EOSINOPHILS % (AUTO) 2 % (0-10); HEMATOCRIT 41 % (40-54); HEMOGLOBIN 13.8 G/DL (13.3-17.7); LYMPHOCYTES # (AUTO) 2.5 X 10^3 (1.0-4.0); LYMPHOCYTES % (AUTO) 49 % (12-44); MEAN CORPUSCULAR HEMOGLOBIN 32 PG (25-34); MEAN CORPUSCULAR HGB CONC 33 G/DL (32-36); MEAN CORPUSCULAR VOLUME 96 FL (80-99); MEAN PLATELET VOLUME 10.6 FL (7.4-10.4); MONOCYTES # (AUTO) 0.5 X 10^3 (0.0-1.0); MONOCYTES % (AUTO) 10 % (0-12); NEUTROPHILS % (AUTO) 39 % (42-75); PLATELET COUNT 212 10^3/uL (130-400); RED CELL DISTRIBUTION WIDTH 12.9 % (10.0-14.5); WHITE BLOOD COUNT 5.1 10^3/uL (4.3-11.0)
[2018-10-17 09:33] LABS: ALANINE AMINOTRANSFERASE 73 U/L (0-55); ALBUMIN 4.5 GM/DL (3.2-4.5); ALKALINE PHOSPHATASE 98 U/L (40-136); BILIRUBIN,TOTAL 0.6 MG/DL (0.1-1.0); BUN/CREATININE RATIO 10; CALCIUM 9.5 MG/DL (8.5-10.1); CARBON DIOXIDE 25 MMOL/L (21-32); CHLORIDE 105 MMOL/L (98-107); CREATININE SERUM 0.99 MG/DL (0.60-1.30); GFR ESTIMATED > 60; GLUCOSE 88 MG/DL (70-105); POTASSIUM 4.5 MMOL/L (3.6-5.0); SODIUM 140 MMOL/L (135-145); TOTAL PROTEIN 6.8 GM/DL (6.4-8.2)
== END ==
LOC: EDSTATUS 07-19 08:57 → ONC 08:58
PROVIDERS: ATTEND Internal Medicine Hematology & Oncology
DX: C50.222 Malignant neoplasm of upper-inner quadrant of left male breast (principal); I89.0 Lymphedema, not elsewhere classified; R74.0 Nonspecific elevation of levels of transaminase and lactic acid dehydrogenase [LDH]; Z17.0 Estrogen receptor positive status [ER+]; Z90.13 Acquired absence of bilateral breasts and nipples; Z79.810 Long term (current) use of selective estrogen receptor modulators (SERMs); Z72.89 Other problems related to lifestyle; Z90.12 Acquired absence of left breast and nipple
CPT/HCPCS: 36415; 80053; 85025; 99213

== ENCOUNTER → 2019-04-19 | Outpatient (CLI) | payer MEDICARE, OTHER | LOC: ONC 08:56 | PROVIDERS: ATTEND Internal Medicine Hematology & Oncology | DX: C50.222 Malignant neoplasm of upper-inner quadrant of left male breast (principal); Z17.0 Estrogen receptor positive status [ER+]; Z79.899 Other long term (current) drug therapy; Z80.3 Family history of malignant neoplasm of breast; Z80.0 Family history of malignant neoplasm of digestive organs | CPT/HCPCS: 99213 ==

== ENCOUNTER → 2019-10-18 | Outpatient (CLI) | payer MEDICARE, OTHER ==
[~2019-10-18] MED LIST changes: +ACHD5005 PO; -HYDR-3812 PO
[2019-10-18 10:01] LABS: BASOPHILS # (AUTO) 0.1 10^3/uL (0.0-0.1); BASOPHILS % (AUTO) 1 % (0-10); EOSINOPHILS # (AUTO) 0.1 10^3/uL (0.0-0.3); EOSINOPHILS % (AUTO) 2 % (0-10); HEMATOCRIT 42 % (40-54); HEMOGLOBIN 14.3 G/DL (13.3-17.7); LYMPHOCYTES # (AUTO) 2.4 X 10^3 (1.0-4.0); LYMPHOCYTES % (AUTO) 45 % (12-44); MEAN CORPUSCULAR HEMOGLOBIN 32 PG (25-34); MEAN CORPUSCULAR HGB CONC 34 G/DL (32-36); MEAN CORPUSCULAR VOLUME 94 FL (80-99); MEAN PLATELET VOLUME 10.6 FL (7.4-10.4); MONOCYTES # (AUTO) 0.5 X 10^3 (0.0-1.0); MONOCYTES % (AUTO) 9 % (0-12); NEUTROPHILS # (AUTO) 2.4 X 10^3 (1.8-7.8); NEUTROPHILS % (AUTO) 44 % (42-75); PLATELET COUNT 210 10^3/uL (130-400); RED CELL DISTRIBUTION WIDTH 12.7 % (10.0-14.5); WHITE BLOOD COUNT 5.4 10^3/uL (4.3-11.0)
[2019-10-18 10:22] LABS: ALANINE AMINOTRANSFERASE 81 U/L (0-55); ALBUMIN 4.4 GM/DL (3.2-4.5); ALKALINE PHOSPHATASE 70 U/L (40-136); BILIRUBIN,TOTAL 0.5 MG/DL (0.1-1.0); BUN/CREATININE RATIO 9; CARBON DIOXIDE 22 MMOL/L (21-32); CHLORIDE 106 MMOL/L (98-107); CREATININE SERUM 1.03 MG/DL (0.60-1.30); GFR ESTIMATED > 60; GLUCOSE 87 MG/DL (70-105); POTASSIUM 4.1 MMOL/L (3.6-5.0); SODIUM 141 MMOL/L (135-145); TOTAL PROTEIN 7.4 GM/DL (6.4-8.2)
== END ==
LOC: ONC 09:47
PROVIDERS: ATTEND Internal Medicine Hematology & Oncology
DX: C50.222 Malignant neoplasm of upper-inner quadrant of left male breast (principal); R74.0 Nonspecific elevation of levels of transaminase and lactic acid dehydrogenase [LDH]; Z90.13 Acquired absence of bilateral breasts and nipples; Z17.0 Estrogen receptor positive status [ER+]; Z79.899 Other long term (current) drug therapy
CPT/HCPCS: 80053; 85025; G0463; 99213

== ENCOUNTER → 2020-04-17 | Outpatient (CLI) | payer MEDICARE, OTHER ==
[2020-04-17 10:55] LABS: BASOPHILS % (AUTO) 1 % (0-10); EOSINOPHILS # (AUTO) 0.1 10^3/uL (0.0-0.3); EOSINOPHILS % (AUTO) 1 % (0-10); HEMATOCRIT 43 % (40-54); HEMOGLOBIN 14.2 g/dL (13.3-17.7); LYMPHOCYTES # (AUTO) 2.4 10^3/uL (1.0-4.0); LYMPHOCYTES % (AUTO) 41 % (12-44); MEAN CORPUSCULAR HEMOGLOBIN 32 pg (25-34); MEAN CORPUSCULAR HGB CONC 33 g/dL (32-36); MEAN CORPUSCULAR VOLUME 95 fL (80-99); MEAN PLATELET VOLUME 10.1 fL (9.0-12.2); MONOCYTES # (AUTO) 0.6 10^3/uL (0.0-1.0); MONOCYTES % (AUTO) 10 % (0-12); NEUTROPHILS # (AUTO) 2.8 10^3/uL (1.8-7.8); NEUTROPHILS % (AUTO) 47 % (42-75); PLATELET COUNT 233 10^3/uL (130-400); WHITE BLOOD COUNT 5.8 10^3/uL (4.3-11.0)
[2020-04-17 11:18] LABS: ALANINE AMINOTRANSFERASE 44 U/L (0-55); ALBUMIN 4.4 GM/DL (3.2-4.5); ALKALINE PHOSPHATASE 75 U/L (40-136); BILIRUBIN,TOTAL 0.7 MG/DL (0.1-1.0); BUN/CREATININE RATIO 11; CALCIUM 8.9 MG/DL (8.5-10.1); CARBON DIOXIDE 27 MMOL/L (21-32); CHLORIDE 104 MMOL/L (98-107); CREATININE SERUM 1.01 MG/DL (0.60-1.30); GFR ESTIMATED > 60; GLUCOSE 102 MG/DL (70-105); POTASSIUM 4.2 MMOL/L (3.6-5.0); SODIUM 139 MMOL/L (135-145); TOTAL PROTEIN 7.3 GM/DL (6.4-8.2)
== END ==
LOC: ONC 10:45
PROVIDERS: ATTEND Internal Medicine Hematology & Oncology
DX: C50 Malignant neoplasm of breast (principal); R74.01 Elevation of levels of liver transaminase levels; Z79.810 Long term (current) use of selective estrogen receptor modulators (SERMs)
CPT/HCPCS: 80053; 85025; G0463; 99213

== ENCOUNTER → 2020-10-15 | Outpatient (CLI) | payer MEDICARE, OTHER ==
[2020-10-15 09:38] LABS: BASOPHILS % (AUTO) 1 % (0-10); EOSINOPHILS # (AUTO) 0.1 10^3/uL (0.0-0.3); EOSINOPHILS % (AUTO) 1 % (0-10); HEMATOCRIT 42 % (40-54); HEMOGLOBIN 14.4 g/dL (13.3-17.7); LYMPHOCYTES # (AUTO) 2.4 10^3/uL (1.0-4.0); LYMPHOCYTES % (AUTO) 40 % (12-44); MEAN CORPUSCULAR HEMOGLOBIN 32 pg (25-34); MEAN CORPUSCULAR HGB CONC 34 g/dL (32-36); MEAN CORPUSCULAR VOLUME 94 fL (80-99); MEAN PLATELET VOLUME 10.4 fL (9.0-12.2); MONOCYTES # (AUTO) 0.6 10^3/uL (0.0-1.0); MONOCYTES % (AUTO) 10 % (0-12); NEUTROPHILS # (AUTO) 2.7 10^3/uL (1.8-7.8); NEUTROPHILS % (AUTO) 47 % (42-75); PLATELET COUNT 216 10^3/uL (130-400); WHITE BLOOD COUNT 5.8 10^3/uL (4.3-11.0)
[2020-10-15 10:04] LABS: ALANINE AMINOTRANSFERASE 33 U/L (0-55); ALBUMIN 4.2 GM/DL (3.2-4.5); ALKALINE PHOSPHATASE 74 U/L (40-136); BILIRUBIN,TOTAL 0.7 MG/DL (0.1-1.0); BUN/CREATININE RATIO 11; CALCIUM 9.4 MG/DL (8.5-10.1); CARBON DIOXIDE 26 MMOL/L (21-32); CHLORIDE 103 MMOL/L (98-107); CREATININE SERUM 1.14 MG/DL (0.60-1.30); GFR ESTIMATED > 60; GLUCOSE 102 MG/DL (70-105); POTASSIUM 4.6 MMOL/L (3.6-5.0); SODIUM 137 MMOL/L (135-145); TOTAL PROTEIN 6.8 GM/DL (6.4-8.2)
== END ==
LOC: ONC 09:21
PROVIDERS: ATTEND Internal Medicine Hematology & Oncology
DX: C50.222 Malignant neoplasm of upper-inner quadrant of left male breast (principal); Z90.13 Acquired absence of bilateral breasts and nipples; Z80.3 Family history of malignant neoplasm of breast; Z80.0 Family history of malignant neoplasm of digestive organs; Z79.810 Long term (current) use of selective estrogen receptor modulators (SERMs)
CPT/HCPCS: 80053; 85025; G0463; 99213

== ENCOUNTER → 2021-04-15 | Outpatient (CLI) | payer MEDICARE, OTHER ==
[2021-04-15 09:27] LABS: BASOPHILS % (AUTO) 1 % (0-10); EOSINOPHILS # (AUTO) 0.1 10^3/uL (0.0-0.3); EOSINOPHILS % (AUTO) 1 % (0-10); HEMATOCRIT 42 % (40-54); HEMOGLOBIN 13.9 g/dL (13.3-17.7); LYMPHOCYTES # (AUTO) 2.2 10^3/uL (1.0-4.0); LYMPHOCYTES % (AUTO) 47 % (12-44); MEAN CORPUSCULAR HEMOGLOBIN 33 pg (25-34); MEAN CORPUSCULAR HGB CONC 33 g/dL (32-36); MEAN CORPUSCULAR VOLUME 98 fL (80-99); MEAN PLATELET VOLUME 10.5 fL (9.0-12.2); MONOCYTES # (AUTO) 0.5 10^3/uL (0.0-1.0); MONOCYTES % (AUTO) 11 % (0-12); NEUTROPHILS # (AUTO) 1.8 10^3/uL (1.8-7.8); NEUTROPHILS % (AUTO) 39 % (42-75); PLATELET COUNT 203 10^3/uL (130-400); WHITE BLOOD COUNT 4.6 10^3/uL (4.3-11.0)
[2021-04-15 09:48] LABS: ALBUMIN 4.2 GM/DL (3.2-4.5); BILIRUBIN,TOTAL 0.3 MG/DL (0.1-1.0); CALCIUM 8.9 MG/DL (8.5-10.1); CREATININE SERUM 0.93 MG/DL (0.60-1.30); POTASSIUM 4.1 MMOL/L (3.6-5.0); TOTAL PROTEIN 7.1 GM/DL (6.4-8.2)
== END ==
LOC: ONC 09:16
PROVIDERS: ATTEND Internal Medicine Hematology & Oncology
DX: C50.222 Malignant neoplasm of upper-inner quadrant of left male breast (principal); Z90.13 Acquired absence of bilateral breasts and nipples; Z80.3 Family history of malignant neoplasm of breast
CPT/HCPCS: 80053; 85025; 99213